=== PATIENT | female | born 1940 | race Caucasian/White ===

== ENCOUNTER → 2018-05-24 | Outpatient (CLI) | payer MEDICARE, OTHER ==
[2018-05-24 09:35] LABS: AADO2 Arterial 28.1 mmHg (7.0-24.0); Allen Test ACCEPTAB; Arterial Base Excess 0.4 mmol/L (-3.0-3); Arterial Blood Gas Oxygen Sat 92.6 mmHG (95.0-100.0); Arterial COHb 0.3 % (0.0-3.0); Arterial Fraction of Oxyhgb 92.2 % (93.0-99.0); Arterial HCO3 25.9 mmol/L (22.0-26.0); Arterial MetHb 0.1 % (0.0-1.5); Arterial Total Hemglobin 12.3 g/dl (12.0-18.0); Arterial pCO2 45.6 mmhg (35-45); MODE ROOM AIR; Site Right Radial
== END | disposition home or self-care (01) ==
LOC: PUL 09:12
DX: R06.02 Shortness of breath (principal)
CPT/HCPCS: 36600; 82803

== ENCOUNTER 2019-05-05 11:37 | Inpatient (IN) | payer MEDICARE, OTHER ==
[2019-05-05] MEDS: SOD CHLORIDE 0.9% 1,000 ML IV (12:28)
[2019-05-05] MEDS: ONDANSETRON 4 MG INJ IV (12:28)
[2019-05-05] MEDS: FAMOTIDINE 20 MG INJ IV (12:28)
[2019-05-05 12:35] LABS: ADD MAN DIFF? NO
[2019-05-05 12:36] LABS: BASOPHIL # 0.1 10^3/ul (0.0-0.1); BASOPHILS % 0.9 % (0.0-2.0); EOSINOPHILS # 0.1 10^3/ul (0.0-0.5); EOSINOPHILS % 0.8 % (0.0-7.0); HEMATOCRIT 35.8 % (37.0-47.0); HEMOGLOBIN 11.2 g/dl (12.0-16.0); LYMPHOCYTES # 2.5 10^3/ul (0.8-2.9); LYMPHOCYTES % 31.2 % (15.0-51.0); MEAN CORPUSCULAR HEMOGLOBIN 31.6 pg (29.0-33.0); MEAN CORPUSCULAR HGB CONC 31.3 g/dl (32.0-37.0); MEAN CORPUSCULAR VOLUME 101.1 fl (82.0-101.0); MEAN PLATELET VOLUME 10.3 fl (7.4-10.4); MONOCYTE # 0.6 10^3/ul (0.3-0.9); MONOCYTES % 7.9 % (0.0-11.0); NEUTROPHIL # 4.7 10^3/ul (1.6-7.5); NEUTROPHILS % 58.9 % (39.0-77.0); PLATELET COUNT 222 10^3/UL (140-415); RED BLOOD COUNT 3.54 10^6/ul (4.20-5.40); RED CELL DISTRIBUTION WIDTH 13.6 % (11.5-14.5)
[2019-05-05 12:36] LABS: WHITE BLOOD COUNT 7.9 10^3/ul (4.8-10.8)
[2019-05-05 13:03] LABS: ADD UMIC YES; UR ASCORBIC ACID 40 mg/dL (NEGATIVE); UR BILIRUBIN (Dip) NEGATIVE (NEGATIVE); UR BLOOD (Dip) NEGATIVE (NEGATIVE); UR CLARITY SLIGHTLY CLOUDY (CLEAR); UR COLOR YELLOW (YELLOW); UR GLUCOSE (Dip) NEGATIVE (NEGATIVE); UR KETONES (Dip) TRACE mg/dL (NEGATIVE); UR LEUKOCYTE ESTERASE (Dip) TRACE Leu/ul (NEGATIVE); UR MUCUS FEW /HPF (NONE SEEN); UR NITRITE (Dip) NEGATIVE (NEGATIVE); UR RBC 0 /HPF (0-5); UR SPECIFIC GRAVITY (Dip) 1.024 (1.003-1.030); UR SQUAMOUS EPITHELIAL CELL FEW /HPF (FEW); UR TOTAL PROTEIN (Dip) NEGATIVE (NEGATIVE); UR UROBILINOGEN (Dip) 1+ mg/dL (NEGATIVE); UR WBC 4 /HPF (0-5)
[2019-05-05 13:11] LABS: ALANINE AMINOTRANSFERASE 28 IU/L (13-69); ALBUMIN 3.7 g/dl (3.3-4.9); ALKALINE PHOSPHATASE 68 IU/L (42-121); ANION GAP 7 (5-13); ASPARTATE AMINO TRANSFERASE 37 IU/L (15-46); BILIRUBIN,INDIRECT 0.3 mg/dl (0-1.1); BILIRUBIN,TOTAL 0.3 mg/dl (0.2-1.3); BLOOD UREA NITROGEN 17 mg/dl (7-20); CALCIUM 8.8 mg/dl (8.4-10.2); CARBON DIOXIDE 28 mmol/L (21-31); CHLORIDE 105 mmol/L (97-110); CREATININE 0.74 mg/dl (0.44-1.00); GLUCOSE 123 mg/dl (70-220); LIPASE 176 U/L (23-300); POTASSIUM 4.9 mmol/L (3.5-5.1); SODIUM 140 mmol/L (135-144); TOTAL PROTEIN 7.4 g/dl (6.1-8.1)
[2019-05-05 13:22] LABS: TROPONIN-I < 0.012 ng/ml (0.000-0.120)
[2019-05-05] MEDS: IPRATROPIUM (NEB) 0.5 MG/2.5 ML AMP NEB (13:33)
[2019-05-05] MEDS: ALBUTEROL 0.5% (NEB) 2.5 MG/0.5 ML AMP NEB (13:33)
[2019-05-05] MEDS: METHYLPREDNISOLONE 125 MG INJ IV (13:40)
[2019-05-05] MEDS: CEFTRIAXONE 1 GM/50 ML (PMX) 50 ML IVPB (13:48)
[2019-05-05] MEDS ORDERED: ACETAMINOPHEN 325 MG TAB PO (14:00)
[2019-05-05] MEDS ORDERED: ONDANSETRON 4 MG INJ IV ×2 (14:00→15:30)
[2019-05-05] MEDS: AZITHROMYCIN 500MG/NS (PMX) 250 ML IV (14:16)
[2019-05-05] MEDS ORDERED: ALBUTEROL/IPRATROPIUM (NEB) 3 ML AMP HHN (15:30)
[2019-05-05] MEDS ORDERED: NACL 0.9% 3 ML SYG IV (15:30)
[2019-05-05 15:38] LABS: LACTIC ACID 1.5 mmol/L (0.5-2.0)
[2019-05-05] MEDS ORDERED: DEXTROSE 50% 50 ML SYRINGE IV ×2 (16:00)
[2019-05-05] MEDS ORDERED: GLUCOSE GEL 15 GRAM TUBE BUCCAL (16:00)
[2019-05-05] MEDS ORDERED: GLUCOSE GEL 15 GRAM TUBE PO ×2 (16:00)
[2019-05-05] MEDS ORDERED: GLUCAGON 1 MG INJ IM (16:00)
[2019-05-05 16:12] LABS: CREATINE KINASE 52 IU/L (23-200)
[2019-05-05 16:23] LABS: B-TYPE NATRIURETIC PEPTIDE 670 PG/ML (0-450)
[2019-05-05 16:25] LABS: CK INDEX 1.7; CK-MB 0.88 ng/ml (0.0-2.4); TROPONIN-I < 0.012 ng/ml (0.000-0.120)
[2019-05-05 16:57] LABS: AADO2 Arterial 52.1 mmHg (7.0-24.0); Allen Test ACCEPTAB; Arterial Base Excess 0.3 mmol/L (-3.0-3); Arterial Blood Gas Oxygen Sat 94.5 mmHG (95.0-100.0); Arterial COHb 0.2 % (0.0-3.0); Arterial Fraction of Oxyhgb 94.2 % (93.0-99.0); Arterial HCO3 26.9 mmol/L (22.0-26.0); Arterial MetHb 0.1 % (0.0-1.5); Arterial pCO2 52.5 mmhg (35-45); MODE NASAL CANNULA; Site Right Radial
[2019-05-05] MEDS: ALBUTEROL/IPRATROPIUM (NEB) 3 ML AMP HHN ×2 (16:59→20:31)
[2019-05-05] MEDS: INSULIN ASPART [NOVOLOG] 3 ML PEN SC ×3 (17:44→20:31)
[2019-05-05] MEDS: MONTELUKAST 10 MG TAB PO (20:07)
[2019-05-05] MEDS: ATORVASTATIN 10 MG TAB PO (20:08)
[2019-05-05] MEDS: METOPROLOL 25 MG TAB PO (20:13)
[2019-05-05] MEDS: INSULIN GLARGINE [LANTus] (100 UNITS/ML) SYG SC (20:31)
[2019-05-05] MEDS ORDERED: NON-FORMULARY/PATIENT OWN MED (Salmeterol Xinaf/Fluticasone* (Advair*) 1 INH) INHALATION (21:00)
[2019-05-05] MEDS: METHYLPREDNISOLONE 40 MG INJ IV (21:45)
[2019-05-05] MEDS: NPH, HUMAN INSULIN ISOPHANE 3ML VIAL SC (22:05)
[2019-05-05 22:49] LABS: CREATINE KINASE 64 IU/L (23-200)
[2019-05-05 23:02] LABS: CK INDEX 1.8; CK-MB 1.14 ng/ml (0.0-2.4); TROPONIN-I < 0.012 ng/ml (0.000-0.120)
[2019-05-06] MEDS: ALBUTEROL/IPRATROPIUM (NEB) 3 ML AMP HHN ×3 (01:23→09:14)
[2019-05-06] MEDS: ACCU-CHEK XX (01:55)
[2019-05-06 06:21] LABS: ADD MAN DIFF? NO
[2019-05-06 06:25] LABS: WHITE BLOOD COUNT 8.1 10^3/ul (4.8-10.8)
[2019-05-06 06:25] LABS: BASOPHILS % 0.1 % (0.0-2.0); HEMATOCRIT 32.4 % (37.0-47.0); HEMOGLOBIN 10.5 g/dl (12.0-16.0); LYMPHOCYTES # 1.5 10^3/ul (0.8-2.9); LYMPHOCYTES % 18.4 % (15.0-51.0); MEAN CORPUSCULAR HEMOGLOBIN 32.3 pg (29.0-33.0); MEAN CORPUSCULAR HGB CONC 32.4 g/dl (32.0-37.0); MEAN CORPUSCULAR VOLUME 99.7 fl (82.0-101.0); MEAN PLATELET VOLUME 10.8 fl (7.4-10.4); MONOCYTE # 0.1 10^3/ul (0.3-0.9); MONOCYTES % 1.6 % (0.0-11.0); NEUTROPHIL # 6.4 10^3/ul (1.6-7.5); NEUTROPHILS % 79.3 % (39.0-77.0); PLATELET COUNT 207 10^3/UL (140-415); RED BLOOD COUNT 3.25 10^6/ul (4.20-5.40); RED CELL DISTRIBUTION WIDTH 13.5 % (11.5-14.5)
[2019-05-06] MEDS: LEVOTHYROXINE 100 MCG TAB PO (06:35)
[2019-05-06] MEDS: PANTOPRAZOLE (EC) 40 MG TAB PO (06:35)
[2019-05-06] MEDS: METHYLPREDNISOLONE 40 MG INJ IV ×3 (06:51→21:25)
[2019-05-06 06:54] LABS: ALANINE AMINOTRANSFERASE 27 IU/L (13-69); ALBUMIN 3.4 g/dl (3.3-4.9); ALBUMIN/GLOBULIN RATIO 1.06; ALKALINE PHOSPHATASE 49 IU/L (42-121); ANION GAP 7 (5-13); ASPARTATE AMINO TRANSFERASE 28 IU/L (15-46); BILIRUBIN,INDIRECT 0.3 mg/dl (0-1.1); BILIRUBIN,TOTAL 0.3 mg/dl (0.2-1.3); BLOOD UREA NITROGEN 15 mg/dl (7-20); CARBON DIOXIDE 28 mmol/L (21-31); CHLORIDE 104 mmol/L (97-110); CHOL/HDL RATIO 3.6 RATIO; CHOLESTEROL 141 mg/dl (100-200); CREATININE 0.69 mg/dl (0.44-1.00); GLUCOSE 157 mg/dl (70-220); HDL CHOLESTEROL 39 mg/dl (33-92); LDL CHOLESTEROL,CALCULATED 87 mg/dl; MAGNESIUM 1.6 mg/dl (1.7-2.5); PHOSPHORUS 3.7 mg/dl (2.5-4.9); POTASSIUM 4.3 mmol/L (3.5-5.1); SODIUM 139 mmol/L (135-144); TOTAL PROTEIN 6.6 g/dl (6.1-8.1); TRIGLYCERIDES 75 mg/dl (0-149)
[2019-05-06] MEDS: NPH, HUMAN INSULIN ISOPHANE 3ML VIAL SC ×3 (07:03→21:30)
[2019-05-06 07:44] LABS: HEMOGLOBIN A1C 6.4 % (0-5.9)
[2019-05-06] MEDS: INSULIN ASPART [NOVOLOG] 3 ML PEN SC ×7 (08:42→20:38)
[2019-05-06] MEDS ORDERED: FISH OIL 1,000 MG CAP PO (09:00)
[2019-05-06] MEDS ORDERED: NON-FORMULARY/PATIENT OWN MED (Esomeprazole Mag Trihydrate (Nexium) 20 MG) PO (09:00)
[2019-05-06] MEDS: ARFORMOTEROL TARTRATE 15MCG/2 ML AMP INH ×2 (09:00→20:23)
[2019-05-06] MEDS: LEVOTHYROXINE 75 MCG TAB PO (09:15)
[2019-05-06] MEDS: CHOLECALCIFEROL 1,000 UNIT TAB PO (09:22)
[2019-05-06] MEDS: FISH OIL 1,000 MG CAP PO ×2 (09:22→20:31)
[2019-05-06] MEDS: METOPROLOL 25 MG TAB PO ×2 (09:22→20:31)
[2019-05-06] MEDS: ALLOPURINOL 300 MG TAB PO (09:23)
[2019-05-06] MEDS: AMIODARONE 200 MG TAB PO (09:39)
[2019-05-06] MEDS: ENOXAPARIN 40 MG/0.4 ML SYG SC (09:44)
[2019-05-06] MEDS: BUDESONIDE (NEB) 0.5MG/2ML AMP INH ×2 (09:46→20:23)
[2019-05-06] MEDS: FLUTICASONE/VILANTEROL 200-25 INH DEVICE INH (12:06)
[2019-05-06] MEDS: TIOTROPIUM 18 MCG CAPSULE INHA DEV INH (12:06)
[2019-05-06] MEDS: CEFTRIAXONE 1 GM/50 ML (PMX) 50 ML IVPB (12:11)
[2019-05-06] MEDS: AZITHROMYCIN 500MG/NS (PMX) 250 ML IVPB (13:36)
[2019-05-06] MEDS: metFORMIN 500 MG TAB PO (17:55)
[2019-05-06] MEDS: MONTELUKAST 10 MG TAB PO (20:31)
[2019-05-06] MEDS: ATORVASTATIN 20 MG TAB PO (20:31)
[2019-05-06] MEDS: INSULIN GLARGINE [LANTus] (100 UNITS/ML) SYG SC (20:38)
[2019-05-07] MEDS: ACCU-CHEK XX (02:16)
[2019-05-07] MEDS: LEVOTHYROXINE 75 MCG TAB PO (05:36)
[2019-05-07] MEDS: PANTOPRAZOLE (EC) 40 MG TAB PO (05:36)
[2019-05-07] MEDS: METHYLPREDNISOLONE 40 MG INJ IV ×3 (05:36→21:47)
[2019-05-07] MEDS: NPH, HUMAN INSULIN ISOPHANE 3ML VIAL SC ×3 (05:47→21:54)
[2019-05-07] MEDS: INSULIN ASPART [NOVOLOG] 3 ML PEN SC ×7 (08:00→20:33)
[2019-05-07] MEDS: metFORMIN 500 MG TAB PO ×2 (08:12→17:28)
[2019-05-07] MEDS: AMIODARONE 200 MG TAB PO (08:13)
[2019-05-07] MEDS: CHOLECALCIFEROL 1,000 UNIT TAB PO (08:13)
[2019-05-07] MEDS: FISH OIL 1,000 MG CAP PO ×2 (08:13→20:21)
[2019-05-07] MEDS: METOPROLOL 25 MG TAB PO ×2 (08:15→20:22)
[2019-05-07] MEDS: FLUTICASONE/VILANTEROL 200-25 INH DEVICE INH ×2 (09:00→20:23)
[2019-05-07] MEDS: ENOXAPARIN 40 MG/0.4 ML SYG SC (09:54)
[2019-05-07] MEDS: ALLOPURINOL 300 MG TAB PO (10:32)
[2019-05-07] MEDS: BUDESONIDE (NEB) 0.5MG/2ML AMP INH ×2 (10:35→20:50)
[2019-05-07] MEDS: ARFORMOTEROL TARTRATE 15MCG/2 ML AMP INH ×2 (10:36→20:50)
[2019-05-07] MEDS: CEFTRIAXONE 1 GM/50 ML (PMX) 50 ML IVPB (11:54)
[2019-05-07] MEDS: AZITHROMYCIN 500MG/NS (PMX) 250 ML IVPB (11:54)
[2019-05-07] MEDS: TIOTROPIUM 18 MCG CAPSULE INHA DEV INH (11:54)
[2019-05-07] MEDS: ATORVASTATIN 20 MG TAB PO (20:21)
[2019-05-07] MEDS: INSULIN GLARGINE [LANTus] (100 UNITS/ML) SYG SC (20:30)
[2019-05-07] MEDS: MONTELUKAST 10 MG TAB PO (21:47)
[2019-05-07] MEDS: DOCUSATE SODIUM 100 MG CAP PO (21:47)
[2019-05-08] MEDS: ACCU-CHEK XX (02:00)
[2019-05-08] MEDS: PANTOPRAZOLE (EC) 40 MG TAB PO (05:50)
[2019-05-08] MEDS: METHYLPREDNISOLONE 40 MG INJ IV ×2 (05:50→20:36)
[2019-05-08] MEDS: LEVOTHYROXINE 75 MCG TAB PO (05:50)
[2019-05-08] MEDS: NPH, HUMAN INSULIN ISOPHANE 3ML VIAL SC ×2 (05:52→20:44)
[2019-05-08] MEDS: INSULIN ASPART [NOVOLOG] 3 ML PEN SC ×7 (08:00→20:43)
[2019-05-08] MEDS: BUDESONIDE (NEB) 0.5MG/2ML AMP INH ×2 (08:08→19:59)
[2019-05-08] MEDS: ARFORMOTEROL TARTRATE 15MCG/2 ML AMP INH (08:08)
[2019-05-08] MEDS: metFORMIN 500 MG TAB PO ×2 (08:44→17:54)
[2019-05-08] MEDS: FISH OIL 1,000 MG CAP PO ×2 (08:44→20:37)
[2019-05-08] MEDS: METOPROLOL 25 MG TAB PO ×2 (08:44→20:38)
[2019-05-08] MEDS: CHOLECALCIFEROL 1,000 UNIT TAB PO (08:44)
[2019-05-08] MEDS: ALLOPURINOL 300 MG TAB PO (08:44)
[2019-05-08] MEDS: TIOTROPIUM 18 MCG CAPSULE INHA DEV INH (08:45)
[2019-05-08] MEDS: AMIODARONE 200 MG TAB PO (08:45)
[2019-05-08] MEDS: FLUTICASONE/VILANTEROL 200-25 INH DEVICE INH (08:46)
[2019-05-08] MEDS: ENOXAPARIN 40 MG/0.4 ML SYG SC (08:48)
[2019-05-08] MEDS ORDERED: GUAIFENESIN/CODEINE 5ML CUP PO (12:30)
[2019-05-08] MEDS: LEVOFLOXACIN 750 MG TABLET PO (13:03)
[2019-05-08] MEDS: ACETAMINOPHEN 325 MG TAB PO (14:29)
[2019-05-08 15:08] LABS: ADD MAN DIFF? NO
[2019-05-08 15:10] LABS: WHITE BLOOD COUNT 12.8 10^3/ul (4.8-10.8)
[2019-05-08 15:10] LABS: BASOPHILS % 0.1 % (0.0-2.0); HEMATOCRIT 36.4 % (37.0-47.0); HEMOGLOBIN 11.6 g/dl (12.0-16.0); LYMPHOCYTES # 1.3 10^3/ul (0.8-2.9); LYMPHOCYTES % 9.8 % (15.0-51.0); MEAN CORPUSCULAR HEMOGLOBIN 31.9 pg (29.0-33.0); MEAN CORPUSCULAR HGB CONC 31.9 g/dl (32.0-37.0); MEAN PLATELET VOLUME 11.5 fl (7.4-10.4); MONOCYTE # 0.5 10^3/ul (0.3-0.9); MONOCYTES % 3.8 % (0.0-11.0); NEUTROPHIL # 10.9 10^3/ul (1.6-7.5); NEUTROPHILS % 85.4 % (39.0-77.0); PLATELET COUNT 247 10^3/UL (140-415); RED BLOOD COUNT 3.64 10^6/ul (4.20-5.40); RED CELL DISTRIBUTION WIDTH 14.1 % (11.5-14.5)
[2019-05-08 15:37] LABS: ALANINE AMINOTRANSFERASE 22 IU/L (13-69); ALBUMIN 3.8 g/dl (3.3-4.9); ALBUMIN/GLOBULIN RATIO 1.08; ALKALINE PHOSPHATASE 52 IU/L (42-121); ANION GAP 11 (5-13); ASPARTATE AMINO TRANSFERASE 26 IU/L (15-46); BILIRUBIN,INDIRECT 0.3 mg/dl (0-1.1); BILIRUBIN,TOTAL 0.3 mg/dl (0.2-1.3); BLOOD UREA NITROGEN 28 mg/dl (7-20); CALCIUM 9.2 mg/dl (8.4-10.2); CARBON DIOXIDE 25 mmol/L (21-31); CHLORIDE 104 mmol/L (97-110); CREATININE 0.73 mg/dl (0.44-1.00); GLUCOSE 125 mg/dl (70-220); POTASSIUM 4.4 mmol/L (3.5-5.1); SODIUM 140 mmol/L (135-144); TOTAL PROTEIN 7.3 g/dl (6.1-8.1)
[2019-05-08] MEDS: hydrALAzine 20 MG INJ IV (16:13)
[2019-05-08] MEDS: LISINOPRIL 10 MG TAB PO (16:13)
[2019-05-08] MEDS: INSULIN GLARGINE [LANTus] (100 UNITS/ML) SYG SC ×2 (20:00→22:22)
[2019-05-08] MEDS: MONTELUKAST 10 MG TAB PO (20:37)
[2019-05-08] MEDS: ATORVASTATIN 20 MG TAB PO (20:37)
[2019-05-09] MEDS: ACCU-CHEK XX (02:00)
[2019-05-09 05:32] LABS: ADD MAN DIFF? NO
[2019-05-09] MEDS: PANTOPRAZOLE (EC) 40 MG TAB PO (05:43)
[2019-05-09] MEDS: LEVOTHYROXINE 75 MCG TAB PO (05:43)
[2019-05-09] MEDS: LEVOFLOXACIN 750 MG TABLET PO (05:44)
[2019-05-09 05:47] LABS: BASOPHILS % 0.2 % (0.0-2.0); HEMATOCRIT 33.8 % (37.0-47.0); HEMOGLOBIN 10.8 g/dl (12.0-16.0); LYMPHOCYTES # 1.3 10^3/ul (0.8-2.9); LYMPHOCYTES % 12.7 % (15.0-51.0); MEAN CORPUSCULAR HEMOGLOBIN 31.5 pg (29.0-33.0); MEAN CORPUSCULAR VOLUME 98.5 fl (82.0-101.0); MEAN PLATELET VOLUME 11.4 fl (7.4-10.4); MONOCYTE # 0.5 10^3/ul (0.3-0.9); MONOCYTES % 4.3 % (0.0-11.0); NEUTROPHIL # 8.6 10^3/ul (1.6-7.5); NEUTROPHILS % 81.7 % (39.0-77.0); PLATELET COUNT 239 10^3/UL (140-415); RED BLOOD COUNT 3.43 10^6/ul (4.20-5.40); RED CELL DISTRIBUTION WIDTH 14.3 % (11.5-14.5)
[2019-05-09 05:47] LABS: WHITE BLOOD COUNT 10.5 10^3/ul (4.8-10.8)
[2019-05-09 06:16] LABS: ANION GAP 6 (5-13); BLOOD UREA NITROGEN 31 mg/dl (7-20); CALCIUM 9.1 mg/dl (8.4-10.2); CARBON DIOXIDE 28 mmol/L (21-31); CHLORIDE 105 mmol/L (97-110); CREATININE 0.81 mg/dl (0.44-1.00); GLUCOSE 134 mg/dl (70-220); MAGNESIUM 1.7 mg/dl (1.7-2.5); PHOSPHORUS 4.3 mg/dl (2.5-4.9); POTASSIUM 4.6 mmol/L (3.5-5.1); SODIUM 139 mmol/L (135-144)
[2019-05-09] MEDS: INSULIN ASPART [NOVOLOG] 3 ML PEN SC ×7 (08:00→21:00)
[2019-05-09] MEDS: BUDESONIDE (NEB) 0.5MG/2ML AMP INH (08:10)
[2019-05-09] MEDS: ENOXAPARIN 40 MG/0.4 ML SYG SC (08:42)
[2019-05-09] MEDS: NPH, HUMAN INSULIN ISOPHANE 3ML VIAL SC ×3 (08:43→22:56)
[2019-05-09] MEDS: LISINOPRIL 10 MG TAB PO (08:44)
[2019-05-09] MEDS: METHYLPREDNISOLONE 40 MG INJ IV ×3 (08:44→22:57)
[2019-05-09] MEDS: CHOLECALCIFEROL 1,000 UNIT TAB PO (08:44)
[2019-05-09] MEDS: FISH OIL 1,000 MG CAP PO ×2 (08:45→21:15)
[2019-05-09] MEDS: ALLOPURINOL 300 MG TAB PO (08:45)
[2019-05-09] MEDS: METOPROLOL 25 MG TAB PO ×2 (08:45→21:15)
[2019-05-09] MEDS: AMIODARONE 200 MG TAB PO (08:46)
[2019-05-09] MEDS: metFORMIN 500 MG TAB PO ×2 (08:46→17:26)
[2019-05-09] MEDS: TIOTROPIUM 18 MCG CAPSULE INHA DEV INH (08:46)
[2019-05-09] MEDS: FLUTICASONE/VILANTEROL 200-25 INH DEVICE INH (08:46)
[2019-05-09] MEDS ORDERED: POLYETHYLENE GLYCOL 17 GM PACKET PO (12:30)
[2019-05-09] MEDS: hydrALAzine 20 MG INJ IV (14:01)
[2019-05-09 15:13] LABS: B-TYPE NATRIURETIC PEPTIDE 1410 PG/ML (0-450)
[2019-05-09] MEDS: ALBUTEROL/IPRATROPIUM (NEB) 3 ML AMP HHN (19:47)
[2019-05-09] MEDS: BUDESONIDE (NEB) 0.5MG/2ML AMP HHN (19:48)
[2019-05-09] MEDS: INSULIN GLARGINE [LANTus] (100 UNITS/ML) SYG SC (21:14)
[2019-05-09] MEDS: ATORVASTATIN 20 MG TAB PO (21:16)
[2019-05-09] MEDS: MONTELUKAST 10 MG TAB PO (21:16)
[2019-05-10] MEDS: ACCU-CHEK XX (02:22)
[2019-05-10] MEDS: LEVOFLOXACIN 750 MG TABLET PO (05:27)
[2019-05-10] MEDS: PANTOPRAZOLE (EC) 40 MG TAB PO (05:27)
[2019-05-10] MEDS: LEVOTHYROXINE 75 MCG TAB PO (05:27)
[2019-05-10] MEDS: METHYLPREDNISOLONE 40 MG INJ IV ×2 (05:28→22:35)
[2019-05-10] MEDS: NPH, HUMAN INSULIN ISOPHANE 3ML VIAL SC ×2 (05:30→22:39)
[2019-05-10 05:52] LABS: ADD MAN DIFF? NO
[2019-05-10 05:56] LABS: BASOPHILS % 0.1 % (0.0-2.0); HEMATOCRIT 35.6 % (37.0-47.0); HEMOGLOBIN 11.4 g/dl (12.0-16.0); LYMPHOCYTES # 1.4 10^3/ul (0.8-2.9); LYMPHOCYTES % 12.9 % (15.0-51.0); MEAN CORPUSCULAR HEMOGLOBIN 31.4 pg (29.0-33.0); MEAN CORPUSCULAR VOLUME 98.1 fl (82.0-101.0); MEAN PLATELET VOLUME 11.4 fl (7.4-10.4); MONOCYTE # 0.3 10^3/ul (0.3-0.9); MONOCYTES % 2.8 % (0.0-11.0); NEUTROPHIL # 8.9 10^3/ul (1.6-7.5); NEUTROPHILS % 83.5 % (39.0-77.0); NUCLEATED RED BLOOD CELLS% 0.2 /100WBC (0.0-0.0); PLATELET COUNT 251 10^3/UL (140-415); RED BLOOD COUNT 3.63 10^6/ul (4.20-5.40); RED CELL DISTRIBUTION WIDTH 14.3 % (11.5-14.5)
[2019-05-10 05:56] LABS: WHITE BLOOD COUNT 10.7 10^3/ul (4.8-10.8)
[2019-05-10 06:30] LABS: ANION GAP 6 (5-13); BLOOD UREA NITROGEN 31 mg/dl (7-20); CALCIUM 9.1 mg/dl (8.4-10.2); CARBON DIOXIDE 29 mmol/L (21-31); CHLORIDE 105 mmol/L (97-110); CREATININE 0.87 mg/dl (0.44-1.00); GLUCOSE 118 mg/dl (70-220); MAGNESIUM 1.7 mg/dl (1.7-2.5); PHOSPHORUS 4.8 mg/dl (2.5-4.9); POTASSIUM 5.1 mmol/L (3.5-5.1); SODIUM 140 mmol/L (135-144)
[2019-05-10] MEDS: ALBUTEROL/IPRATROPIUM (NEB) 3 ML AMP HHN ×3 (07:44→19:13)
[2019-05-10] MEDS: BUDESONIDE (NEB) 0.5MG/2ML AMP HHN ×2 (07:45→19:13)
[2019-05-10] MEDS: INSULIN ASPART [NOVOLOG] 3 ML PEN SC ×7 (08:00→21:00)
[2019-05-10] MEDS: metFORMIN 500 MG TAB PO ×2 (08:39→18:08)
[2019-05-10] MEDS: FISH OIL 1,000 MG CAP PO ×2 (08:39→21:21)
[2019-05-10] MEDS: ALLOPURINOL 300 MG TAB PO (08:39)
[2019-05-10] MEDS: AMIODARONE 200 MG TAB PO (08:39)
[2019-05-10] MEDS: CHOLECALCIFEROL 1,000 UNIT TAB PO (08:39)
[2019-05-10] MEDS: LISINOPRIL 10 MG TAB PO (08:40)
[2019-05-10] MEDS: METOPROLOL 25 MG TAB PO ×2 (08:40→21:23)
[2019-05-10] MEDS: ENOXAPARIN 40 MG/0.4 ML SYG SC (08:46)
[2019-05-10] MEDS ORDERED: NPH, HUMAN INSULIN ISOPHANE 3ML VIAL SC (09:00)
[2019-05-10] MEDS: FUROSEMIDE 20 MG TAB PO (09:00)
[2019-05-10] MEDS ORDERED: METHYLPREDNISOLONE 40 MG INJ IV (09:00)
[2019-05-10] MEDS ORDERED: predniSONE 10 MG TAB PO (09:00)
[2019-05-10] MEDS: FUROSEMIDE 20 MG INJ IV (09:42)
[2019-05-10] MEDS: ATORVASTATIN 20 MG TAB PO (21:20)
[2019-05-10] MEDS: MONTELUKAST 10 MG TAB PO (21:23)
[2019-05-10] MEDS: INSULIN GLARGINE [LANTus] (100 UNITS/ML) SYG SC (21:28)
[2019-05-11] MEDS: ACCU-CHEK XX (02:00)
[2019-05-11 05:27] LABS: ADD MAN DIFF? NO
[2019-05-11 05:33] LABS: BASOPHILS % 0.1 % (0.0-2.0); HEMOGLOBIN 11.3 g/dl (12.0-16.0); LYMPHOCYTES # 1.2 10^3/ul (0.8-2.9); LYMPHOCYTES % 11.1 % (15.0-51.0); MEAN CORPUSCULAR HEMOGLOBIN 31.5 pg (29.0-33.0); MEAN CORPUSCULAR HGB CONC 32.3 g/dl (32.0-37.0); MEAN CORPUSCULAR VOLUME 97.5 fl (82.0-101.0); MEAN PLATELET VOLUME 11.1 fl (7.4-10.4); MONOCYTE # 0.4 10^3/ul (0.3-0.9); MONOCYTES % 3.9 % (0.0-11.0); NEUTROPHIL # 9.1 10^3/ul (1.6-7.5); NEUTROPHILS % 84.2 % (39.0-77.0); NUCLEATED RED BLOOD CELLS% 0.2 /100WBC (0.0-0.0); PLATELET COUNT 245 10^3/UL (140-415); RED BLOOD COUNT 3.59 10^6/ul (4.20-5.40); RED CELL DISTRIBUTION WIDTH 14.4 % (11.5-14.5)
[2019-05-11 05:33] LABS: WHITE BLOOD COUNT 10.9 10^3/ul (4.8-10.8)
[2019-05-11] MEDS: PANTOPRAZOLE (EC) 40 MG TAB PO (05:41)
[2019-05-11] MEDS: LEVOFLOXACIN 750 MG TABLET PO (05:41)
[2019-05-11] MEDS: FUROSEMIDE 20 MG TAB PO (05:42)
[2019-05-11] MEDS: LEVOTHYROXINE 75 MCG TAB PO (05:42)
[2019-05-11 05:58] LABS: ANION GAP 11 (5-13); BLOOD UREA NITROGEN 41 mg/dl (7-20); CALCIUM 8.9 mg/dl (8.4-10.2); CARBON DIOXIDE 27 mmol/L (21-31); CHLORIDE 103 mmol/L (97-110); CREATININE 0.95 mg/dl (0.44-1.00); GLUCOSE 150 mg/dl (70-220); MAGNESIUM 1.7 mg/dl (1.7-2.5); PHOSPHORUS 4.6 mg/dl (2.5-4.9); POTASSIUM 4.9 mmol/L (3.5-5.1); SODIUM 141 mmol/L (135-144)
[2019-05-11] MEDS: INSULIN ASPART [NOVOLOG] 3 ML PEN SC ×7 (08:00→21:00)
[2019-05-11] MEDS: metFORMIN 500 MG TAB PO ×2 (09:35→17:47)
[2019-05-11] MEDS: CHOLECALCIFEROL 1,000 UNIT TAB PO (09:35)
[2019-05-11] MEDS: predniSONE 10 MG TAB PO (09:35)
[2019-05-11] MEDS: FISH OIL 1,000 MG CAP PO ×2 (09:35→21:28)
[2019-05-11] MEDS: ALLOPURINOL 300 MG TAB PO (09:35)
[2019-05-11] MEDS: METOPROLOL 25 MG TAB PO ×2 (09:36→21:29)
[2019-05-11] MEDS: LISINOPRIL 10 MG TAB PO (09:37)
[2019-05-11] MEDS: AMIODARONE 200 MG TAB PO (09:37)
[2019-05-11] MEDS: TIOTROPIUM 18 MCG CAPSULE INHA DEV INH (09:38)
[2019-05-11] MEDS: ENOXAPARIN 40 MG/0.4 ML SYG SC (09:48)
[2019-05-11] MEDS: FLUTICASONE/VILANTEROL 100-25 INH (10:42)
[2019-05-11] MEDS: MONTELUKAST 10 MG TAB PO (21:28)
[2019-05-11] MEDS: ATORVASTATIN 20 MG TAB PO (21:28)
[2019-05-11] MEDS: INSULIN GLARGINE [LANTus] (100 UNITS/ML) SYG SC (21:31)
[2019-05-12] MEDS: ACCU-CHEK XX (01:33)
[2019-05-12] MEDS: LOPERAMIDE 2 MG CAP PO (02:30)
[2019-05-12] MEDS ORDERED: LOPERAMIDE 2 MG CAP PO ×3 (02:30)
[2019-05-12] MEDS: PANTOPRAZOLE (EC) 40 MG TAB PO (06:06)
[2019-05-12] MEDS: LEVOTHYROXINE 75 MCG TAB PO (06:06)
[2019-05-12] MEDS: LEVOFLOXACIN 750 MG TABLET PO (06:06)
[2019-05-12] MEDS: FUROSEMIDE 20 MG TAB PO (06:08)
[2019-05-12] MEDS: INSULIN ASPART [NOVOLOG] 3 ML PEN SC ×4 (08:00→12:50)
[2019-05-12] MEDS: predniSONE 10 MG TAB PO (08:12)
[2019-05-12] MEDS: metFORMIN 500 MG TAB PO (08:12)
[2019-05-12] MEDS: FISH OIL 1,000 MG CAP PO (08:12)
[2019-05-12] MEDS: CHOLECALCIFEROL 1,000 UNIT TAB PO (08:12)
[2019-05-12] MEDS: ALLOPURINOL 300 MG TAB PO (08:12)
[2019-05-12] MEDS: TIOTROPIUM 18 MCG CAPSULE INHA DEV INH (08:13)
[2019-05-12] MEDS: FLUTICASONE/VILANTEROL 100-25 INH (08:13)
[2019-05-12] MEDS: LISINOPRIL 10 MG TAB PO (08:14)
[2019-05-12] MEDS: METOPROLOL 25 MG TAB PO (08:14)
[2019-05-12] MEDS: AMIODARONE 200 MG TAB PO (08:15)
[2019-05-12] MEDS: ENOXAPARIN 40 MG/0.4 ML SYG SC (08:20)
[2019-05-12 10:13] LABS: ADD MAN DIFF? NO
[2019-05-12 10:15] LABS: BASOPHILS % 0.1 % (0.0-2.0); EOSINOPHILS # 0.1 10^3/ul (0.0-0.5); EOSINOPHILS % 0.4 % (0.0-7.0); HEMATOCRIT 38.2 % (37.0-47.0); HEMOGLOBIN 12.1 g/dl (12.0-16.0); LYMPHOCYTES # 2.8 10^3/ul (0.8-2.9); LYMPHOCYTES % 20.8 % (15.0-51.0); MEAN CORPUSCULAR HEMOGLOBIN 31.6 pg (29.0-33.0); MEAN CORPUSCULAR HGB CONC 31.7 g/dl (32.0-37.0); MEAN CORPUSCULAR VOLUME 99.7 fl (82.0-101.0); MEAN PLATELET VOLUME 11.2 fl (7.4-10.4); MONOCYTE # 1.2 10^3/ul (0.3-0.9); MONOCYTES % 8.5 % (0.0-11.0); NEUTROPHIL # 9.4 10^3/ul (1.6-7.5); NEUTROPHILS % 69.5 % (39.0-77.0); PLATELET COUNT 225 10^3/UL (140-415); RED BLOOD COUNT 3.83 10^6/ul (4.20-5.40); RED CELL DISTRIBUTION WIDTH 14.9 % (11.5-14.5)
[2019-05-12 10:15] LABS: WHITE BLOOD COUNT 13.6 10^3/ul (4.8-10.8)
[2019-05-12 10:33] LABS: ALANINE AMINOTRANSFERASE 37 IU/L (13-69); ALBUMIN 3.3 g/dl (3.3-4.9); ALKALINE PHOSPHATASE 49 IU/L (42-121); ANION GAP 11 (5-13); ASPARTATE AMINO TRANSFERASE 41 IU/L (15-46); BILIRUBIN,INDIRECT 0.7 mg/dl (0-1.1); BILIRUBIN,TOTAL 0.7 mg/dl (0.2-1.3); BLOOD UREA NITROGEN 45 mg/dl (7-20); CALCIUM 9.3 mg/dl (8.4-10.2); CARBON DIOXIDE 27 mmol/L (21-31); CHLORIDE 105 mmol/L (97-110); CREATININE 0.97 mg/dl (0.44-1.00); GLUCOSE 94 mg/dl (70-220); POTASSIUM 4.3 mmol/L (3.5-5.1); SODIUM 143 mmol/L (135-144); TOTAL PROTEIN 6.3 g/dl (6.1-8.1)
== END 2019-05-12 16:55 | disposition home or self-care (01) | DRG 193 ==
LOC: E/R 11:37 → 2NE 05-07 06:44 → TEL 13:45
PROC: 4A033R1 Measurement of Arterial Saturation, Peripheral, Percutaneous Approach (ICD-10-PCS; principal; 2019-05-05)
DX: J18.1 Lobar pneumonia, unspecified organism (principal); J96.01 Acute respiratory failure with hypoxia; J44.1 Chronic obstructive pulmonary disease with (acute) exacerbation; J44.0 Chronic obstructive pulmonary disease with (acute) lower respiratory infection; E66.9 Obesity, unspecified; Z68.36 Body mass index [BMI] 36.0-36.9, adult; E03.9 Hypothyroidism, unspecified; E78.5 Hyperlipidemia, unspecified; E11.9 Type 2 diabetes mellitus without complications; D35.02 Benign neoplasm of left adrenal gland; E79.0 Hyperuricemia without signs of inflammatory arthritis and tophaceous disease; I05.0 Rheumatic mitral stenosis
CPT/HCPCS: 36415; 36600; 71045; 74176; 80048; 80053; 80061; 81001; 82550; 82553; 82803; 82962; 83036; 83605; 83690; 83735; 83880; 84100; 84443; 84484; 85025; 87040-91; 87070; 93005; 93306; 94640; 94664; 96374; 96375; 97161; 99285-25